=== PATIENT | female | born 1995 | race Caucasian/White ===

== ENCOUNTER 2018-03-03 21:22 | Observation (INO) | payer MEDICAID, SELFPAY ==
[2018-03-03 21:23] VITALS: BP 138/80; PULSE 91; RESP 28; TEMP 37.1; O2SAT 96; BMI 38.0
[2018-03-03 21:36] LABS: Bedside Glucose 137 mg/dL (70-110)
--- NOTE | 2018-03-03 21:36 | EKG12_ITS ---
Test Reason : Blood Pressure : / mmHG Vent. Rate : 086 BPM Atrial Rate : 086 BPM P-R Int : 158 ms QRS Dur : 098 ms QT Int : 404 ms P-R-T Axes : 041 075 035 degrees QTc Int : 483 ms Normal sinus rhythm Prolonged QT Abnormal ECG Confirmed by NOEL HAMMER, THERESA ([id number]), editor school photograph NEIDA GREEN ([id number]) on 03/08/2018 2:53:41 PM Referred By: CORY Confirmed By:THERESA COHEN MD
--- NOTE | 2018-03-03 21:36 | RAD_ITS ---
STUDY: X-RAY CHEST REASON FOR EXAM: Female, 23 years old. Seizure TECHNIQUE: Frontal view of the chest COMPARISON: None. FINDINGS: There is a right-sided port with its tip in the superior vena cava. The lungs are clear. There are no pleural effusions. There is no pneumothorax. The heart is normal in size. The visualized osseous structures are within normal limits. RAD/Chest 1 View (Portable) IMPRESSION: No acute thoracic pathology. Electronically Signed: Yazan Hudson, at 22:07 EDT Tel , Service support ,
--- NOTE | 2018-03-03 21:36 | CT_ITS ---
STUDY: CT BRAIN WITHOUT CONTRAST REASON FOR EXAM: Female, 23 years old. Seizure RADIATION DOSAGE (If Supplied By Facility): CTDIvol = ( 44.99 ) mGy, DLP = ( 846.73 ) mGycm TECHNIQUE: Transaxial CT imaging of the brain was performed without administration of intravenous contrast material. Individualized dose optimization techniques were used for this CT. COMPARISON: None. FINDINGS: There is no acute bleed or infarct. There are normal white matter tracts. The ventricles are normal in configuration. There is no hydrocephalus. There is a 1.8 cm polyp versus mucous retention cyst in the right maxillary sinus. The visualized paranasal sinuses are otherwise clear. The mastoid air cells are well aerated. There is no skull fracture. CT/Brain/Head without Contrast IMPRESSION: No acute intracranial abnormality. Polyp versus mucous retention cyst in the right maxillary sinus. Electronically Signed: Yazan Hudson, at 23:39 EDT Tel , Service support ,
--- NOTE | 2018-03-03 21:43 | ED.DCSUM_ITS ---
- ER Visit Summary Date of Service: 03/03/18 Chief Complaint: [] Seizure disorder diabetes History of Present Illness: The patient is a 23 F [] patient was brought in by EMS history is very sketchy as the patient has choppy speech and is recently new to the [facility], the girlfriend with her does not know her very well she is only known her for 5 days, she apparently per girlfriend had to type seizures 5 minutes each she did not strike her head or injure her body she was not sick in any way other than she complained of chest pain all day today, she has a history of chest pain, diabetes, history of factor V deficiency and she is on Eliquis related to multiple PEs, she lives in the [facility] recently moved to [place] so there is no past history records From what we understand from paramedics and the girlfriend she simply began having shaking spells ?2 but appear to be seizure related she was not sick except as above all day today she is not on seizure medications, she had seizures since she was age 43 years old when she had head injury she does not know what medication she was on with her medications were discontinued in August 2017 because she did not need them she has had no fever no cough her blood sugar recently was about 4-500 Physical Examination: [] Signs are unremarkable she is awake alert looking around she has this choppy speech pattern is unclear why she has no trauma to her head she has no trauma to her mouth she is awake and alert answering questions appropriately she is a large woman her lungs are clear the heart tones unremarkable abdomen soft nontender she is moving all 4 extremities to support her right chest that is by her history of [employer], she reports she cannot receive IV contrast unless she is medicated with steroids other meds for 24 hours, she has been taking her Eliquis In all the above CT screening labs IV fluids Keppra Test Results: [] Emergency Department Course and Treatment: [] Patient's screening labs are generally unremarkable, her d-dimer clotted she would not allow the nurses to redraw, there was some issue redrawn from report, her chest x-ray was unremarkable but there was some notation radiology the tip of the port seem to be curled up in the SVC, Head CT is pending she remains stable here in the emergency department were trying to determine what the issue was getting the head CT read at this time given all of her complaints I have asked the hospital see her further management admission we related the CT had report to him when it becomes available further I explained to them that the chest pain Eliquis history of DVT PE and the need for 24 hours of premedication should they feel she requires CTA of her chest, again she is and has been taking her Eliquis, any further anticoagulation will be determined by the inpatient service Treatment Plan: [] Disposition: [] Admit stable Impression: [] Seizure disorder, chest pain, history of seizure disorder, history of chest pain, history of diabetes and multiple PEs This note was generated with [employer] dictation software. It may contain incorrect words, spelling, and punctuation that were not noted in review of the chart prior to signing ED Disposition - Plan for ED Patient: Chief Complaint: Seizure
[2018-03-03 22:01] LABS: Absolute Lymphocyte Count 2.52 X10^3/ul (0.83-4.51); Absolute Neutrophil Count 7.6 X10^3/uL (2.0-7.7); Basophil# 0.05 X10^3/uL; Basophil% 0.4 % (0-1); Eosinophil# 0.14 X10^3/uL; Eosinophils% 1.3 % (0-5); Hematocrit 34.7 % (37-47); Hemoglobin 10.5 g/dl (12.0-15.0); Lymphocyte # 2.52 X10^3/ul (4.0); Lymphocyte % 22.5 % (19-41); Mean Corp Hgb Conc 30.3 g/gl (32-36); Mean Corpuscular Hgb 23.5 pg (27.0-32.0); Mean Corpuscular Volume 77.6 fL (81-99); Monocyte# 0.82 X10^3/uL; Monocyte% 7.3 % (0-10); Neutrophil # 7.64 X10^3/uL (2.7-7.7); Neutrophil % 68.3 % (47-70); POSITIVE COUNT NO; POSITIVE DIFFERENTIAL NO; POSITIVE MORPHOLOGY NO; Platelet Count 197 K/mm3 (150-450); RBC Distribution Width CV 16.7 % (11.6-14.6); RBC Distribution Width SD 46.8 fl (35.1-43.9); Red Blood Count 4.47 M/mm3 (4.2-5.4); White Blood Count 11.2 K/mm3 (4.4-11.0)
[2018-03-03] MEDS: levETIRAcetam IV 1,000 MG/100 ML BAG 400 MG IV (22:05)
[2018-03-03] MEDS: Ondansetron 4 MG/2 ML Vial IV (22:05)
[2018-03-03] MEDS: morphine 8 MG/ML Syringe IV (22:05)
[2018-03-03 22:19] LABS: AST(SGOT) 25 U/L (15-37); Alanine Aminotransfer ALT/SGPT 36 U/L (13-56); Albumin, Serum 3.2 g/dL (3.2-5.0); Alkaline Phosphatase 82 U/L (45-117); Anion Gap 10 (5-15); BUN 6 mg/dL (7-18); BUN/Creat Ratio 7.1 RATIO (10-20); Bilirubin, Direct 0.08 mg/dL (0.00-0.30); Calcium,Total 8.5 mg/dL (8.5-10.1); Chloride 111 mmol/L (98-107); Creatinine, Serum 0.84 mg/dL (0.55-1.02); EST Glomerular Filtration Rate 88 mL/min (>60); Est Glom Filt Rate - Afr Amer 107 mL/min (>60); Estimated Creatinine Clearance 104.18 ml/min; Globulin 3.6 g/dL (2.2-4.2); Glucose 118 mg/dL (74-106); Protein, Total 6.8 g/dL (6.4-8.2); Sodium Level 142 mmol/L (136-145)
[2018-03-03 22:43] LABS: Mucous, Urine 0 SEEN /hpf (<or=2+)
--- NOTE | 2018-03-03 23:21 | PCM.HP.STD ---
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 She came in with a friend who stated that patient had a first episode of seizure where she was unresponsive for about 5 minutes and 30 seconds and thereafter she had a tonic-clonic manifestation involving the bilateral legs , one arm and was shaking her head. Additionally she clenched her teeth. Patient denies any aura before this seizure. Although she states in the past she has had auras before her seizures. Her friend reports that patient had lost of control of her bladder with the seizure. Reportedly the patient's had head trauma in her childhood and ever since she has had seizures. Reportedly in August of this year her seizure medications was stopped. The patient was at [facility] on 02/26/2018 for shortness of breath and chest pain. And upon review of her chart from [facility], it was noted that the patient has a Port-A-Cath. Also, it was noted that patient frequently visits hospitals; was leaving at a correction; and is allergic to all pain medications except morphine and Dilaudid. Also from review of charts, it was noted that patient had tried suicide by medicine overdose for about 50 times. From review of charts she reported marijuana and methamphetamines use while at [facility]. Patient used to live in [place] and came to [place] not too long ago.. She came to the emergency department with a friend who she has met not too long ago. Her friend was requesting that the patient should be given something for her chest pain. Her friend had buprenorphine patch on which she displayed at a time of my assessment. Past Medical History Medical History: Medical History (Last Updated 03/04/18 @ 00:50 by Samir Luevano MD) DVT (deep venous thrombosis) I82.409 Diabetes mellitus type 1 E10.9 Epilepsy G40.909 Factor V Leiden mutation D68.51 Hypothyroidism E03.9 Pulmonary embolism I26.99 Schizoaffective disorder F25.9 Allergies Unable to Assess Allergy (Verified 03/03/18 21:27) Home Medications: Ambulatory Orders Medication Instructions Recorded Apixaban [Eliquis] 5 mg PO BID 03/03/18 Atorvastatin Calcium 40 mg PO DAILY 03/03/18 Carvedilol 25 mg PO BID 03/03/18 Furosemide 40 mg PO TID 03/03/18 Insulin Aspart [Novolog] 5 unit SQ TID 03/03/18 Insulin Glargine,Hum.rec.anlog 45 unit SQ BID 03/03/18 [Lantus] Levothyroxine [Synthroid] 150 mcg PO DAILY 03/03/18 Psychiatric History: Bipolar Smoking Status: Current every day smoker Alcohol: Occasional Drugs: Marijuana - *Family History Paternal History Items: Clotting Disorder, Diabetes, Seizures Review of Systems Constitutional: Denies: Chills, Fever, Weight Change HEENT: Denies: Head Aches, Sinus Congestion, Sinus Drainage Cardiovascular: Reports: Chest Pain Respiratory: Denies: Cough, Shortness of breath at rest, Sputum production Gastrointestinal: Denies: Abdominal Pain, Nausea, Vomiting Genitourinary: Denies: Dysuria Musculoskeletal: Denies: Joint Pain, Joint Tenderness Skin: Denies: Rash, Wounds Neurological: Denies: Numbness, Tingling, Focal weakness VTE Information - Inpt Only VTE Present on Admission: No VTE Mechan Device Prophylaxis: None VTE Pharm Prophylaxis ordered?: No Reason prophylaxis not ordered:: Medical Contraindication - Physical Exam General: Lethargic HEENT: Atraumatic, PERRLA, EOMI, Normocephalic Neck: Supple, No JVD, Negative Carotid Bruits Lungs: Clear to auscultation, Normal air movement Cardiovascular: Regular rate, No murmurs Abdomen: Bowel Sounds Present Extremities: No clubbing Skin: No rashes, No breakdown Musculoskeletal: No Tenderness to Palpation of Joints or Extremities Neurological: - - Patient lethargic, talking slowly and unable to follow commands. Psych/Mental Status: - - Lethargic Vital Signs Temp Pulse Resp BP Pulse Ox 98.8 F 91 28 H 138/80 H 96 03/03/18 21:23 03/03/18 21:23 03/03/18 21:23 03/03/18 21:23 03/03/18 21:23 Oxygen Delivery Method Room Air Weight: 113.398 kg Body Mass Index (BMI) 38.0 Laboratory Tests Past 24 Hrs 03/03/18 03/03/18 03/03/18 21:52 21:52 22:35 WBC 11.2 H RBC 4.47 Hgb 10.5 L Hct 34.7 L MCV 77.6 L MCH 23.5 L MCHC 30.3 L RDW 16.7 H RDW Differential 46.8 H Plt Count 197 MPV 9.0 Immature Gran % (Auto) 0.200 Neut % (Auto) 68.3 Lymph % (Auto) 22.5 [place] % (Auto) 7.3 Eos % (Auto) 1.3 Baso % (Auto) 0.4 Absolute Neuts (auto) 7.6 Absolute Lymphs (auto) 2.52 Total Counted Not Reportable Sodium 142 Potassium 3.0 L Chloride 111 H Carbon Dioxide 21.0 Anion Gap 10 BUN 6 L Creatinine 0.84 Estim Creat Clear Calc 104.18 Est GFR (MDRD) Af Amer 107 Est GFR (MDRD) Non-Af 88 BUN/Creatinine Ratio 7.1 L Glucose 118 H Calcium 8.5 Total Bilirubin 0.30 Direct Bilirubin 0.08 AST 25 ALT 36 Alkaline Phosphatase 82 Troponin I < 0.015 Total Protein 6.8 Albumin 3.2 Globulin 3.6 Urine Color Pending Urine Clarity Pending Urine pH Pending Ur Specific [place] Pending Urine Protein Pending Urine Glucose (UA) Pending Urine Ketones Pending Urine Occult Blood Pending Urine Nitrite Pending Urine Bilirubin Pending Urine Urobilinogen Pending Ur Leukocyte Esterase Pending Urine RBC Pending Urine WBC Pending Ur Squamous Epith Cells Pending Urine Bacteria Pending Urine Mucus Pending POC Glucose 03/03/18 21:28 POC Glucose 137 H Assessment/Plan Patient is a 23 year old F with a significant history of epilepsy; factor V Leiden deficiency, 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 Seizures Status post Keppra 1000 mg bolus at the ED We will continue Keppra one thousand milligrams twice daily. Ativan as needed Seizure precautions Urine drug screen. CPK ordered to confirm seizure. EEG ordered. Neurology consult Chest pain Her chest pain has been going for a long time. At the ED CT of the chest was considered. However, because of allergy to contrast patient requested that before her CT scan of the chest can be done she need a 24-hour treatment with steroids and Benadryl Unlikely PE since patient does not have tachycardia and her oxygen saturation is appropriate. Moreover she is on Eliquis and has IVC filter Aspirin ordered Serial cardiac enzymes at this time. The patient is not a candidate for a stress test at this time since she is very lethargic. Aspirin continued. Lipitor continued. Because of abnormal EKG cardiology (? Brugada )has been consulted. Diabetes mellitus type I On home prandial insulin 5 units 3 times daily and with sliding scale. We will continue prandial insulin and add a correction dose regimen. Reportedly she is waiting for pre-approval for Lantus. She reports that her Lantus dose is supposed to be 45 units. Her blood glucose on admission was only mildly elevated We will start patient on Lantus 10 units once daily and see how she does with that. Multiple PEs and DVT secondary to a factor leading deficiency Eliquis continued DVT prophylaxis Patient is already on Eliquis. This note was prepared with speech recognition software and may be prone to errors in social human services assistants. Code Visit Inpatient E&M: 70912 Init Hosp L2
[2018-03-03 23:24] VITALS: BP 97/50; PULSE 83; RESP 16; O2SAT 89
[2018-03-03 23:24] LABS: Color, Urine Yellow (Yellow); Glucose, Dipstick Normal (Normal); Ketone-Dipstick 5 mg/dl (Negative); Leukocyte Esterase-Dipstick 25 /ul (Negative); Nitrite-Dipstick Negative (Negative); Occult Blood-Urine 10 /ul (Negative); Protein-Dipstick 30 mg/dl (Negative); Specific Gravity, Urine 1.025 (1.002-1.030); Urine Bilirubin Dipstick Negative (Negative); Urine Clarity Clear (Clear); Urine Urobilinogen 1 mg/dl (Normal)
--- NOTE | 2018-03-03 23:25 | ED.RN ---
rn not able to straight stick patient, lab unable. dr. white aware. if unable to get no need to get per dr. white
[2018-03-03 23:46] LABS: Bacteria RARE /hpf (None Seen); Calcium Oxalate Crystals Ur 1+ /hpf (<or=2+); Red Blood Cells-Urine 0-5 SEEN /hpf (0-5); Squamous Epithelial Cells - UA 0-5 SEEN /hpf (5-10); White Blood Cells 0-5 SEEN /hpf (0-5)
[2018-03-04] VITALS (13 sets, daily range): BP systolic 112–124; BP diastolic 50–80; PULSE 55–81; RESP 14–20; TEMP 36–36.7; O2SAT 89–98; BMI 55.2
[2018-03-04] MEDS: Ketorolac 30 MG/ML Syringe IV (02:05)
[2018-03-04] MEDS: 0.9% NaCl Peripheral Flush Adult/Peds IV ×2 (02:06→05:57)
[2018-03-04 02:20] LABS: CPK Total, Creatine Kinase 140 U/L (26-192)
[2018-03-04 03:01] LABS: Amphetamine Urine VISTA NEGATIVE (<1000 ng/mL); Barbiturate Urine VISTA NEGATIVE (< 200 ng/mL); Benzodiazepine Urine VISTA NEGATIVE (< 200 ng/mL); Cocaine Urine VISTA NEGATIVE (< 300 ng/mL); Ecstacy Urine VISTA NEGATIVE (< 500 ng/mL); Methadone Urine VISTA NEGATIVE (< 300 ng/mL); PCP Urine VISTA NEGATIVE (< 25 ng/mL); THC Urine VISTA POSITIVE (< 50 ng/mL); Vista UDS pH Range 6
[2018-03-04] MEDS: levETIRAcetam IV 1,000 MG/100 ML BAG 400 MG IV (05:52)
[2018-03-04] MEDS: Levothyroxine 150 MCG Tablet PO (05:55)
[2018-03-04] MEDS: Furosemide 40 MG Tablet PO (05:55)
[2018-03-04] MEDS: Haloperidol Lactate 5 MG/ML Vial IV (05:57)
[2018-03-04 06:58] LABS: Anion Gap 8 (5-15); BUN 6 mg/dL (7-18); BUN/Creat Ratio 8.5 RATIO (10-20); Calcium,Total 8.2 mg/dL (8.5-10.1); Chloride 114 mmol/L (98-107); Creatinine, Serum 0.71 mg/dL (0.55-1.02); EST Glomerular Filtration Rate 108 mL/min (>60); Est Glom Filt Rate - Afr Amer 130 mL/min (>60); Estimated Creatinine Clearance 123.25 ml/min; Glucose 98 mg/dL (74-106); Potassium 3.7 mmol/L (3.5-5.1); Sodium Level 146 mmol/L (136-145)
[2018-03-04 09:01] LABS: Bedside Glucose 105 mg/dL (70-110)
--- NOTE | 2018-03-04 09:28 | PCM.PROGNOTE ---
Subjective: Chief complaint: Follow-up after admission for seizure. Patient seen and examined. No acute events overnight. At this time, patient is sleepy but she is arousable and was able to communicate and answer questions appropriately. She knows her full name, date of , date and time but she mentioned that she does not know what she is at. She complains of chest pain but this has been chronic. She is not aware of what happened yesterday and she is not aware that she had seizure ?2. According to the patient, she had a history of seizure disorder and she has been on seizure medication for long time that was stopped on August, by his PCP. She has a Port-A-Cath and according to her, this was placed in October, because she has difficult IV access. Reportedly, patient was admitted to outside facility on February 26, 2018 for chest pain or shortness of breath. Not clear if she had any stress test done. At this time, her vital signs are completely stable. Routine blood work was remarkable for anemia which looked to be chronic, potassium of 3 which was replaced and corrected. Her LFT was normal. Troponin was negative ?3. Urinalysis revealed no evidence of acute cystitis. Urine drug screen was positive for opioids and cannabinoids. EKG revealed normal sinus rhythm, normal CT interval, prolonged QTC, no acute ischemic changes. CT scan brain showed no acute findings. Chest x-ray showed no acute infiltrate, consolidation or effusion. - Physical Exam General: Alert, Cooperative, - - AP, easily arousable, appropriate answering questions. HEENT: Atraumatic, PERRLA, EOMI, Normocephalic Oral: Moist Mucosa, No Gingival or Mucosal Lesions/ Ulcerations Neck: Supple, No JVD, Negative Carotid Bruits, Trachea Midline, Thyroid Normal Size and Texture Lungs: Clear to auscultation, No rhonchi, No wheeze, No rales, Diminished Cardiovascular: Regular rate, Regular Rhythm, Normal S1, Normal S2, PMI Normal Abdomen: Bowel Sounds Present, Soft, Non Tender, Non-Distended, No Hepato-splenomegaly, Obese Extremities: No clubbing, No cyanosis, No edema Skin: No rashes, No breakdown Lymphatic: No Cervical, Supraclavicular, or Inguinal Adenopathy Neurological: Cranial nerves II-XII grossly intact, Motor Exam 5/5 strength throughout Psych/Mental Status: Normal Affect Vital Signs Temp Pulse Resp BP Pulse Ox 98.0 F 66 14 118/60 96 03/04/18 07:00 03/04/18 07:00 03/04/18 07:00 03/04/18 07:00 03/04/18 07:00 Oxygen Delivery Method Room Air Weight: 363 lb 12.203 oz Body Mass Index (BMI) 55.2 Intake and Output for Last 24 Hours 03/02/18 03/03/18 03/04/18 23:59 23:59 23:59 Intake Total 231 / 231 Balance 231 / 231 Laboratory Tests Past 24 Hrs 03/04/18 03/04/18 03/04/18 01:29 01:29 06:16 Sodium Potassium Chloride Carbon Dioxide Anion Gap BUN Creatinine Estim Creat Clear Calc Est GFR (MDRD) Af Amer Est GFR (MDRD) Non-Af BUN/Creatinine Ratio Glucose Calcium Total Creatine Kinase 140 Troponin I < 0.015 < 0.015 03/04/18 06:16 Sodium 146 H Potassium 3.7 Chloride 114 H Carbon Dioxide 24.0 Anion Gap 8 BUN 6 L Creatinine 0.71 Estim Creat Clear Calc 123.25 Est GFR (MDRD) Af Amer 130 Est GFR (MDRD) Non-Af 108 BUN/Creatinine Ratio 8.5 L Glucose 98 Calcium 8.2 L Total Creatine Kinase Troponin I POC Glucose 03/04/18 08:50 POC Glucose 105 Clinical Impression(s) from Imaging Studies Brain CT 03/03/18 21:36 IMPRESSION: No acute intracranial abnormality. Polyp versus mucous retention cyst in the right maxillary sinus. Electronically Signed: Yazan Hudson, at 23:39 EDT Tel , Service support , Chest X-Ray 03/03/18 21:36 IMPRESSION: No acute thoracic pathology. Electronically Signed: Yazan Hudson, at 22:07 EDT Tel , Service support , ADDENDUM: 03/03/18 2224 Medical Necessity - Tobacco Use Smoking Status: Current every day smoker Tobacco Use: Cigarettes Assessment/Plan This is a 23 years old female patient presented to the emergency room because of witnessed generalized tonic-clonic seizure in context of history of seizure disorder, was on anticonvulsants that was discontinued on August, according to the patient. #1 seizure: In context of history of seizure, was on antiseizure medications that was discontinued on August, according to patient. She is on IV Keppra. At this time, she is lethargic and sleepy but easily arousable and appropriate. Her vital signs are stable. Routine blood work is remarkable for hypokalemia and chronic anemia, otherwise stable. Potassium was replaced and corrected. Neurology consulted, EEG was ordered. #2 chronic chest pain: EKG revealed normal sinus rhythm without evidence of acute ischemic changes, revealed prolonged QTC and this is chronic. There is a positive ?3. Chest x-ray showed no acute findings. Reportedly, patient was admitted for chest pain or shortness of breath recently at outside facility. Reportedly as well, patient has been having chronic chest pain and there is a concern that she has factitious disorder seeking narcotics. At this time, the pain is unlikely to be cardiac in etiology. No indication for further cardiac workup. We will try to see if she had stress test done at the outside facility during the last admission was 1 week ago. #3 type 2 diabetes mellitus: Blood sugar stable, continue 89, Accu-Cheks, continue pre-meal Humalog and a.m. Lantus. #4 hypertension: Blood pressure stable, continue Coreg, Lasix. #5 unspecified chronic CHF: Clinically stable, compensated at this time. Continue aspirin, statins, Coreg and Lasix. #6 hypothyroidism: Continue levothyroxine. #7 Paroxysmal atrial fibrillation: Rate is controlled, she is in sinus rhythm. Continue Coreg for rate control and Eliquis for anti-cognition. #8 history of factor V Leiden/DVT/history of PE: Status post IVC, continue Eliquis. #9 ADHD/schizoaffective disorders: She is not in any regimen at home. At this time, she is calm and appropriate. #10 DVT prophylaxis: Continue Eliquis. This note was generated with [employer] dictation software. It may contain incorrect words, spelling, and punctuation that were not noted in checking the note before signing. Code Visit Inpatient E&M: 73935 Subs Hosp L2
--- NOTE | 2018-03-04 09:32 | PN_ITS ---
Subjective: Chief complaint: Follow-up after admission for seizure. Patient seen and examined. No acute events overnight. At this time, patient is sleepy but she is arousable and was able to communicate and answer questions appropriately. She knows her full name, date of , date and time but she mentioned that she does not know what she is at. She complains of chest pain but this has been chronic. She is not aware of what happened yesterday and she is not aware that she had seizure ?2. According to the patient, she had a history of seizure disorder and she has been on seizure medication for long time that was stopped on August, by his PCP. She has a Port-A-Cath and according to her, this was placed in October, because she has difficult IV access. Reportedly, patient was admitted to outside facility on February 26, 2018 for chest pain or shortness of breath. Not clear if she had any stress test done. At this time, her vital signs are completely stable. Routine blood work was remarkable for anemia which looked to be chronic, potassium of 3 which was replaced and corrected. Her LFT was normal. Troponin was negative ?3. Urinalysis revealed no evidence of acute cystitis. Urine drug screen was positive for opioids and cannabinoids. EKG revealed normal sinus rhythm, normal TX interval, prolonged QTC, no acute ischemic changes. CT scan brain showed no acute findings. Chest x-ray showed no acute infiltrate, consolidation or effusion. - Physical Exam General: Alert, Cooperative, - - AP, easily arousable, appropriate answering questions. HEENT: Atraumatic, PERRLA, EOMI, Normocephalic Oral: Moist Mucosa, No Gingival or Mucosal Lesions/ Ulcerations Neck: Supple, No JVD, Negative Carotid Bruits, Trachea Midline, Thyroid Normal Size and Texture Lungs: Clear to auscultation, No rhonchi, No wheeze, No rales, Diminished Cardiovascular: Regular rate, Regular Rhythm, Normal S1, Normal S2, PMI Normal Abdomen: Bowel Sounds Present, Soft, Non Tender, Non-Distended, No Hepato- splenomegaly, Obese Extremities: No clubbing, No cyanosis, No edema Skin: No rashes, No breakdown Lymphatic: No Cervical, Supraclavicular, or Inguinal Adenopathy Neurological: Cranial nerves II-XII grossly intact, Motor Exam 5/5 strength throughout Psych/Mental Status: Normal Affect Vital Signs Temp Pulse Resp BP Pulse Ox 98.0 F 66 14 118/60 96 03/04/18 07:00 03/04/18 07:00 03/04/18 07:00 03/04/18 07:00 03/04/18 07:00 Oxygen Delivery Method Room Air Weight: 363 lb 12.203 oz Body Mass Index (BMI) 55.2 Intake and Output for Last 24 Hours 03/02/18 03/03/18 03/04/18 23:59 23:59 23:59 Intake Total 231 / 231 Balance 231 / 231 Laboratory Tests Past 24 Hrs 03/04/18 03/04/18 03/04/18 01:29 01:29 06:16 Sodium Potassium Chloride Carbon Dioxide Anion Gap BUN Creatinine Estim Creat Clear Calc Est GFR (MDRD) Af Amer Est GFR (MDRD) Non-Af BUN/Creatinine Ratio Glucose Calcium Total Creatine Kinase 140 Troponin I < 0.015 < 0.015 03/04/18 06:16 Sodium 146 H Potassium 3.7 Chloride 114 H Carbon Dioxide 24.0 Anion Gap 8 BUN 6 L Creatinine 0.71 Estim Creat Clear Calc 123.25 Est GFR (MDRD) Af Amer 130 Est GFR (MDRD) Non-Af 108 BUN/Creatinine Ratio 8.5 L Glucose 98 Calcium 8.2 L Total Creatine Kinase Troponin I POC Glucose 03/04/18 08:50 POC Glucose 105 Clinical Impression(s) from Imaging Studies Brain CT 03/03/18 21:36 IMPRESSION: No acute intracranial abnormality. Polyp versus mucous retention cyst in the right maxillary sinus. Electronically Signed: Yazan Hudson, at 23:39 EDT Tel , Service support , Chest X-Ray 03/03/18 21:36 IMPRESSION: No acute thoracic pathology. Electronically Signed: Yazan Hudson, at 22:07 EDT Tel , Service support , ADDENDUM: 03/03/18 2224 Medical Necessity - Tobacco Use Smoking Status: Current every day smoker Tobacco Use: Cigarettes Assessment/Plan This is a 23 years old female patient presented to the emergency room because of witnessed generalized tonic-clonic seizure in context of history of seizure disorder, was on anticonvulsants that was discontinued on August, according to the patient. #1 seizure: In context of history of seizure, was on antiseizure medications that was discontinued on August, according to patient. She is on IV Keppra. At this time, she is lethargic and sleepy but easily arousable and appropriate. Her vital signs are stable. Routine blood work is remarkable for hypokalemia and chronic anemia, otherwise stable. Potassium was replaced and corrected. Neurology consulted, EEG was ordered. #2 chronic chest pain: EKG revealed normal sinus rhythm without evidence of acute ischemic changes, revealed prolonged QTC and this is chronic. There is a positive ?3. Chest x-ray showed no acute findings. Reportedly, patient was admitted for chest pain or shortness of breath recently at outside facility. Reportedly as well, patient has been having chronic chest pain and there is a concern that she has factitious disorder seeking narcotics. At this time, the pain is unlikely to be cardiac in etiology. No indication for further cardiac workup. We will try to see if she had stress test done at the outside facility during the last admission was 1 week ago. #3 type 2 diabetes mellitus: Blood sugar stable, continue 89, Accu-Cheks, continue pre-meal Humalog and a.m. Lantus. #4 hypertension: Blood pressure stable, continue Coreg, Lasix. #5 unspecified chronic CHF: Clinically stable, compensated at this time. Continue aspirin, statins, Coreg and Lasix. #6 hypothyroidism: Continue levothyroxine. #7 Paroxysmal atrial fibrillation: Rate is controlled, she is in sinus rhythm. Continue Coreg for rate control and Eliquis for anti-cognition. #8 history of factor V Leiden/DVT/history of PE: Status post IVC, continue Eliquis. #9 ADHD/schizoaffective disorders: She is not in any regimen at home. At this time, she is calm and appropriate. #10 DVT prophylaxis: Continue Eliquis. This note was generated with [employer] dictation software. It may contain incorrect words, spelling, and punctuation that were not noted in checking the note before signing. Code Visit Inpatient E&M: 10111 Subs Hosp L2
[2018-03-04] MEDS: APIXABAN 5 MG TABLET PO (10:15)
[2018-03-04] MEDS: Carvedilol 25 MG Tablet PO (10:15)
--- NOTE | 2018-03-04 10:54 | PCM.CONS.GEN ---
Reason for Consult Date of Consultation: 03/04/18 Reason for Consultation: sz History of Present Illness: The patient is a 23 year oldfemale apparently diagnosed with pseudosz in [place], in aug stopped meds per her neurologist, had a seizure so meds restarted, moved to [place] two months ago and stopped meds and has had a recurrent event with urinary incontinence but no tongue biting or injury. reports she is tired now, reports sz since age 3 due to head injury. has significant psychiatric confounders. Past Medical History Past Medical History (Chronic Problems): Chronic Problems (Last Updated 03/04/18 @ 00:50 by Samir Luevano MD) Unspecified chronic CHF (Chronic) Hypothyroidism (Chronic) Type 2 diabetes mellitus (Chronic) Seizure disorder (Chronic) Schizoaffective disorder (Chronic) ADHD (attention deficit hyperactivity disorder) (Chronic) Hypertension (Chronic) S/P IVC filter (Chronic) History of pulmonary embolism (Chronic) History of DVT of lower extremity (Chronic) Factor V Leiden (Chronic) Atrial fibrillation (Chronic) Medical History: Medical History (Last Reviewed 03/04/18 @ 10:56 by Ross Shah MD) DVT (deep venous thrombosis) I82.409 Diabetes mellitus type 1 E10.9 Epilepsy G40.909 Factor V Leiden mutation D68.51 Hypothyroidism E03.9 Pulmonary embolism I26.99 Schizoaffective disorder F25.9 Allergies Unable to Assess Allergy (Verified 03/03/18 21:27) Home Medications: Ambulatory Orders Medication Instructions Recorded Apixaban [Eliquis] 5 mg PO BID 03/03/18 Atorvastatin Calcium 40 mg PO DAILY 03/03/18 Carvedilol 25 mg PO BID 03/03/18 Furosemide 40 mg PO TID 03/03/18 Insulin Aspart [Novolog] 5 unit SQ TID 03/03/18 Insulin Glargine,Hum.rec.anlog 45 unit SQ BID 03/03/18 [Lantus] Levothyroxine [Synthroid] 150 mcg PO DAILY 03/03/18 Psychiatric History: Bipolar Smoking Status: Current every day smoker Tobacco Use: Cigarettes Alcohol: Occasional Drugs: Marijuana - *Family History Paternal History Items: Clotting Disorder, Diabetes, Seizures Review of Systems Constitutional: Denies: Chills, Fever, Weight Change HEENT: Denies: Head Aches, Sinus Congestion, Sinus Drainage Cardiovascular: Denies: Chest Pain, Palpitations Respiratory: Denies: Cough, Shortness of breath at rest, Sputum production Gastrointestinal: Denies: Abdominal Pain, Nausea, Vomiting Genitourinary: Denies: Dysuria Musculoskeletal: Denies: Joint Pain, Joint Tenderness Skin: Denies: Rash, Wounds Neurological: Denies: Numbness, Tingling, Focal weakness Psychiatric: Denies: Anxiety, Depression, Homicidal Ideations, Suicidal Ideations Hematologic/ Lymphatic: Denies: Easy Bruising, Easy Bleeding - Physical Exam General: Alert - nonphysiologic stuttering of speech, language intact, Oriented x3, Cooperative HEENT: Atraumatic, PERRLA, EOMI, Normocephalic Neck: Supple, No JVD, Negative Carotid Bruits Lungs: Clear to auscultation, Normal air movement Cardiovascular: Regular rate, No murmurs Abdomen: Bowel Sounds Present, Soft, Non Tender Extremities: No edema, Capillary Refill Less than 3 Seconds Skin: No rashes, No breakdown Musculoskeletal: No Tenderness to Palpation of Joints or Extremities Neurological: Cranial nerves II-XII grossly intact Psych/Mental Status: Normal Affect, Appropriate Vital Signs Temp Pulse Resp BP Pulse Ox 36.7 C 60 14 118/60 96 03/04/18 07:00 03/04/18 07:03 03/04/18 07:00 03/04/18 07:00 03/04/18 07:00 Oxygen Delivery Method Room Air Weight: 165 kg Body Mass Index (BMI) 55.2 Intake and Output for Last 24 Hours 03/02/18 03/03/18 03/04/18 23:59 23:59 23:59 Intake Total 231 / 231 Balance 231 / 231 Laboratory Tests Past 24 Hrs 03/04/18 03/04/18 03/04/18 01:29 01:29 06:16 Sodium Potassium Chloride Carbon Dioxide Anion Gap BUN Creatinine Estim Creat Clear Calc Est GFR (MDRD) Af Amer Est GFR (MDRD) Non-Af BUN/Creatinine Ratio Glucose Calcium Total Creatine Kinase 140 Troponin I < 0.015 < 0.015 03/04/18 06:16 Sodium 146 H Potassium 3.7 Chloride 114 H Carbon Dioxide 24.0 Anion Gap 8 BUN 6 L Creatinine 0.71 Estim Creat Clear Calc 123.25 Est GFR (MDRD) Af Amer 130 Est GFR (MDRD) Non-Af 108 BUN/Creatinine Ratio 8.5 L Glucose 98 Calcium 8.2 L Total Creatine Kinase Troponin I POC Glucose 03/04/18 08:50 POC Glucose 105 Assessment/Plan likely pseudosz, workup in [place], unable to determine. no need for further neurologic testing restart cortez marcelo, tpm dc when baseline
--- NOTE | 2018-03-04 11:11 | CASEMGMT ---
Addendum entered by Lise Vergara 03/04/18 12:44: SW attempted to speak w/pt again this afternoon, pt is still asleep however. SW will attempt to see pt on Wednesday as time allows. JS Zamora, [employer]INE [employer]SEM[employer]ER Original Note: SW attempted to speak w/pt in the room in regard to counseling resources. However, pt appears asleep and difficult to arouse. Pt did open her eyes, but immediately closed them again. SW will attempt to speak w/her again once pt is more awake and alert. JS Zamora, [employer]IN MACHINE ASSEMBLER
--- NOTE | 2018-03-04 11:14 | CASEMGMT ---
See RN CM Assessment Link. DC PLAN: Home -Pt lives with friend who pt says assists with transportation. -SW consult to assist with establishing counseling in [place]. Jeanine KHOURYN RN AC
[2018-03-04 11:56] LABS: Bedside Glucose 91 mg/dL (70-110)
[2018-03-04] MEDS: Gabapentin 300 MG Capsule 900 MG PO (12:18)
[2018-03-04] MEDS: Topiramate 100 MG Tablet PO (12:18)
--- NOTE | 2018-03-04 15:06 | DCINST_ITS ---
- Discharge Diagnoses Current Active Problems: Current Active and Chronic Problems (Last Reviewed 03/04/18 @ 10:56 by Ross Shah MD) Unspecified chronic CHF (Chronic) Hypothyroidism (Chronic) Type 2 diabetes mellitus (Chronic) Seizure disorder (Chronic) Schizoaffective disorder (Chronic) ADHD (attention deficit hyperactivity disorder) (Chronic) Hypertension (Chronic) S/P IVC filter (Chronic) History of pulmonary embolism (Chronic) History of DVT of lower extremity (Chronic) Factor V Leiden (Chronic) Atrial fibrillation (Chronic) You will use the following diet at home:: Calorie/Carbohydrate Controlled ( specify 1200, 1400, etc) - 1800 rachelle, Cardiac Your food should be the consistency of: Regular Discharge Activity: Return to Normal Activity Weight Bearing Status: Weight bearing as tolerated Call your doctor if you observe: Fever of 101 or Higher, Shortness of breath, Dizziness, Fainting spells, Chest pain, Increased palpitations (irregular heartbeat), Uncontrolled pain Allergies/Adverse Reactions: Allergies Unable to Assess Allergy (Verified 03/03/18 21:27) Medications to take at Discharge Apixaban [Eliquis] 5 mg PO BID 03/03/18 Atorvastatin Calcium 40 mg PO DAILY 03/03/18 Carvedilol 25 mg PO BID 03/03/18 Furosemide 40 mg PO TID 03/03/18 Insulin Aspart [Novolog Vial] 5 unit SQ TID 03/03/18 Insulin Glargine,Hum.rec.anlog [Lantus] 45 unit SQ BID 03/03/18 Levothyroxine [Synthroid] 150 mcg PO DAILY 03/03/18 Gabapentin [Neurontin] 900 mg PO TIDCM #90 cap 03/04/18 Topiramate [Topamax] 100 mg PO BID #90 tab 03/04/18 levETIRAcetam tablet [Keppra tablet] 500 mg PO BID #90 tab 03/04/18 The following prescriptions were given: levETIRAcetam tablet [Keppra tablet] 500 mg PO BID #90 tab Topiramate [Topamax] 100 mg PO BID #90 tab Gabapentin [Neurontin] 900 mg PO TIDCM #90 cap Primary Care Physician: Adria Hopper NP-C [Primary Care Provider] - Please follow up with your Primary Care Physician in: 1 week. Test Results: Test results from this visit will be discussed in further detail at your follow- up appointment, if applicable. Please Follow Up With: Ross Shah MD When: 2-3 weeks.
--- NOTE | 2018-03-04 15:47 | DS.PCM_ITS ---
Discharge Date and Diagnosis Date of Admission: 03/03/18 Date of Discharge: 03/04/18 - Primary Discharge Diagnosis #1 seizure in context of history of seizure disorder, discontinued taking her seizure medication in general, 2018. #2 encephalopathy. #3 chronic chest pain. #4 concern for drug-seeking behavior. - Secondary Discharge Diagnosis Chronic Problems (Last Reviewed 03/04/18 @ 10:56 by Ross Shah MD) Unspecified chronic CHF (Chronic) Hypothyroidism (Chronic) Type 2 diabetes mellitus (Chronic) Seizure disorder (Chronic) Schizoaffective disorder (Chronic) ADHD (attention deficit hyperactivity disorder) (Chronic) Hypertension (Chronic) S/P IVC filter (Chronic) History of pulmonary embolism (Chronic) History of DVT of lower extremity (Chronic) Factor V Leiden (Chronic) Atrial fibrillation (Chronic) Hospital Course and Treatment Imaging Results: Clinical Impression(s) from Imaging Studies Brain CT 03/03/18 21:36 IMPRESSION: No acute intracranial abnormality. Polyp versus mucous retention cyst in the right maxillary sinus. Electronically Signed: Yazan Hudson, at 23:39 EDT Tel , Service support , Chest X-Ray 03/03/18 21:36 IMPRESSION: No acute thoracic pathology. Electronically Signed: Yazan Hudson, at 22:07 EDT Tel , Service support , ADDENDUM: 03/03/18 2224 Operations: None Procedures: EKG Summary of Care Provided: The patient is a 23 year old F admitted because of witnessed generalized tonic clinic seizure ?2 in context of history of seizure and according to the patient , her dog. Her antiseizure medications back in August,. CT scan brain showed no acute findings. Her routine blood work was unremarkable. Her urinalysis revealed no evidence for acute cystitis. Chest x-ray showed no acute infiltrate. Her urine drug screen was positive for opioids and cannabinoids. Patient was admitted to ICU, was given loading dose of Keppra. Neurology consulted and recommended to start patient back on Keppra, Topamax and gabapentin. Neurology stated that there is no need to do EEG. Reportedly, patient was admitted to our facility 1 week ago for chest pain or shortness of breath. This admission, patient again complained of chest pain or shortness of breath. Her EKG revealed normal sinus rhythm, prolonged QTC and no acute ischemic changes. Troponin was negative ?3. Reportedly, there is a concern that patient having drug-seeking behavior. She does have Port-A-Cath and according to the patient, this was placed back in October, because she has difficult IV access. Cardiology consulted and recommended no further cardiac workup. Acute coronary syndrome ruled out. Patient was started back on Keppra , Topamax and gabapentin by neurology. Initially, patient was lethargic and sleepy and later on the day of discharge, patient was fully awake, alert and oriented and she was eating and drinking. Her vital signs were stable. Patient discharged home in a stable medical condition, discharged on Keppra, Topamax and gabapentin, continued on her chronic home medications without any changes, recommended follow-up with PCP in 1 week and follow-up with neurology in 2-3 weeks. Discharge Activity: Return to Normal Activity Weight Bearing Status: Weight bearing as tolerated Call your doctor if you observe: Fever of 101 or Higher, Shortness of breath, Dizziness, Fainting spells, Chest pain, Increased palpitations (irregular heartbeat), Uncontrolled pain Home Medications: Medications to take at Discharge Apixaban [Eliquis] 5 mg PO BID 03/03/18 Atorvastatin Calcium 40 mg PO DAILY 03/03/18 Carvedilol 25 mg PO BID 03/03/18 Furosemide 40 mg PO TID 03/03/18 Insulin Aspart [Novolog Vial] 5 unit SQ TID 03/03/18 Insulin Glargine,Hum.rec.anlog [Lantus] 45 unit SQ BID 03/03/18 Levothyroxine [Synthroid] 150 mcg PO DAILY 03/03/18 Gabapentin [Neurontin] 900 mg PO TIDCM #90 cap 03/04/18 Topiramate [Topamax] 100 mg PO BID #90 tab 03/04/18 levETIRAcetam tablet [Keppra tablet] 500 mg PO BID #90 tab 03/04/18 Following Prescrptions Were Given to Patient: levETIRAcetam tablet [Keppra tablet] 500 mg PO BID #90 tab Topiramate [Topamax] 100 mg PO BID #90 tab Gabapentin [Neurontin] 900 mg PO TIDCM #90 cap Primary Care Physician: Adria Hopper NP-C [Primary Care Provider] - Please follow up with your Primary Care Physician in: 1 week. Please Follow Up With: Ross Shah MD When: 2-3 weeks. Disposition: Home Minutes spent on discharge:: 25 Patient Condition:: Stable Medical Necessity - Tobacco Use Smoking Status: Current every day smoker Tobacco Use: Cigarettes Meaningful Use Info Meaningful Use Diagnoses (Choose all that apply): None applicable Code Visit Inpatient E&M: 40386 Disch Hosp
--- NOTE | 2018-03-04 16:48 | PCM.CONS.C ---
Problem List (1) Atrial fibrillation Status: Chronic Qualifiers: Atrial fibrillation type: paroxysmal Qualified Code(s): I48.0 - Paroxysmal atrial fibrillation (2) Prolonged QT interval Status: Acute (3) Diastolic CHF, chronic Status: Acute (4) Factor V Leiden Status: Chronic (5) History of DVT of lower extremity Status: Chronic (6) History of pulmonary embolism Status: Chronic (7) S/P IVC filter Status: Chronic (8) Hypertension Status: Chronic (9) Type 2 diabetes mellitus Status: Chronic (10) Hypothyroidism Status: Chronic (11) Schizoaffective disorder Status: Chronic (12) ADHD (attention deficit hyperactivity disorder) Status: Chronic (13) Seizure disorder Status: Chronic Reason for Consult Date of Consultation: 03/04/18 History of Present Illness: The patient is a 23 year old white female with a past medical history including atrial fibrillation superimposed upon hypertension, diabetes mellitus, hypothyroidism, Factor 5 Leiden disorder, status post DVT/PE, status post IVC filter, schizoaffective disorder, attention deficit disorder, and seizure disorder, who presents for evaluation of recurrent seizure disorder who is referred for evaluation based on cardiovascular history and concern as to whether or not the patient may have an underlying Brugada syndrome. At the time of consultation the patient appeared to be somewhat lethargic. She did state she had a history of atrial fibrillation. She had been evaluated in [facility]. She did not recall any details of her evaluation. She has had no complaints of ongoing palpitation. She has had no reports of near syncope or syncope. There has been no other concerning chest discomfort or difficulty breathing that she reported. Her initial evaluation demonstrated cardiac enzymes which were negative. An ECG was performed she demonstrated sinus rhythm with, based upon the reported QTc interval, prolongation of her QTc interval. It did not appear to be compatible with classic elective cardiographic findings of Brugada syndrome. Additional medical records were requested for review. It appears that the patient has been evaluated at [facility] in [place], [place] in the past. According to their medical records there have been comments of atrial fibrillation and QT prolongation. They had recommended holding any QT prolongation medications as best as possible. No other cardiovascular records were available for review. From [facility], from [place], a transthoracic echocardiogram was reported. This was performed on 11/19/2017. At that time the report stated her LV was normal size and function with an LVEF of 65%, the RV was normal size and function, there was no hemodynamically significant valvular abnormalities, a patent foramen ovale was not demonstrated by color-flow Doppler or agitated saline contrast study, and there was a report of no significant change compared to a prior study of 04/16/2015. No other medical records were available for review. Since the patient's consultation earlier this day she subsequently was reported as becoming more awake and alert. She then requested to be discharged home for outpatient follow-up with her primary care physicians. [] Past Medical History Allergies/Adverse Reactions: Allergies Unable to Assess Allergy (Verified 03/03/18 21:27) Home Medications: Ambulatory Orders Medication Instructions Recorded Apixaban [Eliquis] 5 mg PO BID 03/03/18 Atorvastatin Calcium 40 mg PO DAILY 03/03/18 Carvedilol 25 mg PO BID 03/03/18 Furosemide 40 mg PO TID 03/03/18 Insulin Aspart [Novolog Vial] 5 unit SQ TID 03/03/18 Insulin Glargine,Hum.rec.anlog 45 unit SQ BID 03/03/18 [Lantus] Levothyroxine [Synthroid] 150 mcg PO DAILY 03/03/18 Gabapentin [Neurontin] 900 mg PO TIDCM #90 cap 03/04/18 Topiramate [Topamax] 100 mg PO BID #90 tab 03/04/18 levETIRAcetam tablet [Keppra 500 mg PO BID #90 tab 03/04/18 tablet] Past Medical History (Chronic Problems): Chronic Problems (Last Reviewed 03/04/18 @ 10:56 by Ross Shah MD) Unspecified chronic CHF (Chronic) Hypothyroidism (Chronic) Type 2 diabetes mellitus (Chronic) Seizure disorder (Chronic) Schizoaffective disorder (Chronic) ADHD (attention deficit hyperactivity disorder) (Chronic) Hypertension (Chronic) S/P IVC filter (Chronic) History of pulmonary embolism (Chronic) History of DVT of lower extremity (Chronic) Factor V Leiden (Chronic) Atrial fibrillation (Chronic) Psychiatric History: Bipolar - *Family History Paternal History Items: Clotting Disorder, Diabetes, Seizures Smoking Status: Current every day smoker Tobacco Use: Cigarettes Alcohol: Occasional Drugs: Marijuana Review of Systems - Review of Systems General: Denies: Fever, Night Sweats, Fatigue Cardiovascular: Denies: Chest Discomfort, Shortness of Breath, Orthopnea, PND, Peripheral Edema, Palpitations, Lightheadedness, Dizziness, Near Syncope, Syncope Respiratory: Denies: Cough, Sputum Production, Hemoptysis Gastrointestinal: Denies: Hematemesis, Hematochezia, Melena Genitourinary: Denies: Dysuria, Hematuria Skin: Denies: Rash Subjectve: This is a 23-year-old overweight white female who was resting comfortably and appeared somewhat lethargic at the time of her original consultation earlier this day. Objective: Vital Signs Temp Pulse Resp BP Pulse Ox 96.8 F L 55 L 17 124/80 H 97 03/04/18 11:44 03/04/18 15:06 03/04/18 15:06 03/04/18 15:06 03/04/18 15:06 Oxygen Delivery Method Room Air Weight: 363 lb 12.203 oz Body Mass Index (BMI) 55.2 Intake and Output for Last 24 Hours 03/02/18 03/03/18 03/04/18 23:59 23:59 23:59 Intake Total 231 / 231 Balance 231 / 231 General: Lethargic HEENT: Atraumatic, Normocephalic, PERRL, EOMI, Sclera Non Icteric Oral: Moist Mucosa Neck: Supple, Good ROM, No JVD Lungs: Clear to auscultation Cardiovascular: Regular Rhythm, Normal S1, Normal S2 Vascular: No Carotid Bruits Abdomen: Bowel Sounds Present, Soft, Non Tender Extremities: No Cyanosis, No Clubbing, No edema Psych/Mental Status: Depressed 03/04/18 01:29: Troponin I < 0.015 03/04/18 06:16: Troponin I < 0.015 03/04/18 06:16: Sodium 146 H, Potassium 3.7, Chloride 114 H, Carbon Dioxide 24.0, Anion Gap 8, BUN 6 L, Creatinine 0.71, Est GFR (MDRD) Af Amer 130, Est GFR (MDRD) Non-Af 108, BUN/Creatinine Ratio 8.5 L, Glucose 98, Calcium 8.2 L Rhythm: Sinus rhythm EKG: As noted above ECHO: As noted above Assessment/Plan 1. Atrial fibrillation The patient apparently has a history of paroxysmal atrial fibrillation. This is by her report and documentation and records from [facility] in [place], [place]. At the present time she appears to be in sinus rhythm. She apparently has been treated medically in the past. This appears to include antiplatelet therapy with aspirin. It appears she has been on rate control therapy with beta-blockers. Based upon review of outside medical records from [facility] in [place], [place], it does not appear the patient has been treated with anticoagulant therapy. There is been no report of any antiarrhythmic therapy. The patient does appear to have a [id number] Score of 5 based upon a reported history of congestive heart failure, hypertension, diabetes mellitus, CVA, and being a female. However, again, it does not appear she has been on anticoagulant therapy potentially based upon her history of paroxysmal atrial dysrhythmia and her other multiple medical issues, such as her underlying psychologic (including per outside medical records suicidal ideations) and neurologic disorders, raising concerns of risk benefit ratio of anticoagulant therapy especially with respect to recurrent seizure disorders, as well as other disorders in her outside hospital medical records listing anemia. Thus at the present time it appears the patient will be remaining on antiplatelet therapy. 2. Prolonged QT interval The patient has a long-standing history of a prolonged QT interval. There has been no previous augmentation with respect to additional need for electrophysiology evaluation or care other than attempting to eliminate any potential QT prolonging agents. Also, with respect to her electrocardiogram, there does not appear to be at least classic elective cardiographic findings for underlying Brugada syndrome at this time. There is been no comment on that in her past medical records. 3. CHF: Chronic diastolic The patient reportedly has chronic diastolic CHF. She does not appear to be in overt failure at this time. She will need to continue medical management as deemed appropriate. She has recently undergone echocardiographic studies as well noted by her previous report from [facility]. 4. Hypertension He should should continue antihypertensive therapy as deemed appropriate. 5. Diabetes mellitus The patient will continue medical management per her primary care physicians. 6. Hypothyroidism The patient should continue thyroid supplement therapy as deemed appropriate. 7. 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 At the moment there is no report of any acute thromboembolic events. She will continue medical management as deemed appropriate. 8. Psychological/neurological disorders The patient appears to have multiple psychological and underlying neurological disorders. She will need continue evaluation care per internal medicine. Comment: Again, as noted above, status post the patient's cardiovascular consultation earlier this day she apparently had improvement in her mental status and was subsequently released home for continued outpatient follow-up with her primary care physicians, etc. It did not appear she required further cardiovascular diagnostic studies or therapeutic intervention at this time. She should continue to follow with her primary real estate sales supervisor as deemed appropriate. This note was generated with [employer] dictation software. It may contain incorrect words, spelling, and punctuation that were not noted in checking the note before signing.
--- NOTE | 2018-03-04 16:57 | CON.PCM_ITS ---
Problem List (1) Atrial fibrillation Status: Chronic Qualifiers: Atrial fibrillation type: paroxysmal Qualified Code(s): I48.0 - Paroxysmal atrial fibrillation (2) Prolonged QT interval Status: Acute (3) Diastolic CHF, chronic Status: Acute (4) Factor V Leiden Status: Chronic (5) History of DVT of lower extremity Status: Chronic (6) History of pulmonary embolism Status: Chronic (7) S/P IVC filter Status: Chronic (8) Hypertension Status: Chronic (9) Type 2 diabetes mellitus Status: Chronic (10) Hypothyroidism Status: Chronic (11) Schizoaffective disorder Status: Chronic (12) ADHD (attention deficit hyperactivity disorder) Status: Chronic (13) Seizure disorder Status: Chronic Reason for Consult Date of Consultation: 03/04/18 History of Present Illness: The patient is a 23 year old white female with a past medical history including atrial fibrillation superimposed upon hypertension, diabetes mellitus, hypothyroidism, Factor 5 Leiden disorder, status post DVT/PE, status post IVC filter, schizoaffective disorder, attention deficit disorder, and seizure disorder, who presents for evaluation of recurrent seizure disorder who is referred for evaluation based on cardiovascular history and concern as to whether or not the patient may have an underlying Brugada syndrome. At the time of consultation the patient appeared to be somewhat lethargic. She did state she had a history of atrial fibrillation. She had been evaluated in [facility]. She did not recall any details of her evaluation. She has had no complaints of ongoing palpitation. She has had no reports of near syncope or syncope. There has been no other concerning chest discomfort or difficulty breathing that she reported. Her initial evaluation demonstrated cardiac enzymes which were negative. An ECG was performed she demonstrated sinus rhythm with, based upon the reported QTc interval, prolongation of her QTc interval. It did not appear to be compatible with classic elective cardiographic findings of Brugada syndrome. Additional medical records were requested for review. It appears that the patient has been evaluated at [facility] in [place], [place] in the past. According to their medical records there have been comments of atrial fibrillation and QT prolongation. They had recommended holding any QT prolongation medications as best as possible. No other cardiovascular records were available for review. From [facility], from [facility], a transthoracic echocardiogram was reported. This was performed on 11/19/2017. At that time the report stated her LV was normal size and function with an LVEF of 65%, the RV was normal size and function, there was no hemodynamically significant valvular abnormalities, a patent foramen ovale was not demonstrated by color-flow Doppler or agitated saline contrast study, and there was a report of no significant change compared to a prior study of 04/16/2015. No other medical records were available for review. Since the patient's consultation earlier this day she subsequently was reported as becoming more awake and alert. She then requested to be discharged home for outpatient follow-up with her primary care physicians. [] Past Medical History Allergies/Adverse Reactions: Allergies Unable to Assess Allergy (Verified 03/03/18 21:27) Home Medications: Ambulatory Orders Medication Instructions Recorded Apixaban [Eliquis] 5 mg PO BID 03/03/18 Atorvastatin Calcium 40 mg PO DAILY 03/03/18 Carvedilol 25 mg PO BID 03/03/18 Furosemide 40 mg PO TID 03/03/18 Insulin Aspart [Novolog Vial] 5 unit SQ TID 03/03/18 Insulin Glargine,Hum.rec.anlog 45 unit SQ BID 03/03/18 [Lantus] Levothyroxine [Synthroid] 150 mcg PO DAILY 03/03/18 Gabapentin [Neurontin] 900 mg PO TIDCM #90 cap 03/04/18 Topiramate [Topamax] 100 mg PO BID #90 tab 03/04/18 levETIRAcetam tablet [Keppra 500 mg PO BID #90 tab 03/04/18 tablet] Past Medical History (Chronic Problems): Chronic Problems (Last Reviewed 03/04/18 @ 10:56 by Ross Shah MD) Unspecified chronic CHF (Chronic) Hypothyroidism (Chronic) Type 2 diabetes mellitus (Chronic) Seizure disorder (Chronic) Schizoaffective disorder (Chronic) ADHD (attention deficit hyperactivity disorder) (Chronic) Hypertension (Chronic) S/P IVC filter (Chronic) History of pulmonary embolism (Chronic) History of DVT of lower extremity (Chronic) Factor V Leiden (Chronic) Atrial fibrillation (Chronic) Psychiatric History: Bipolar - *Family History Paternal History Items: Clotting Disorder, Diabetes, Seizures Smoking Status: Current every day smoker Tobacco Use: Cigarettes Alcohol: Occasional Drugs: Marijuana Review of Systems - Review of Systems General: Denies: Fever, Night Sweats, Fatigue Cardiovascular: Denies: Chest Discomfort, Shortness of Breath, Orthopnea, PND, Peripheral Edema, Palpitations, Lightheadedness, Dizziness, Near Syncope, Syncope Respiratory: Denies: Cough, Sputum Production, Hemoptysis Gastrointestinal: Denies: Hematemesis, Hematochezia, Melena Genitourinary: Denies: Dysuria, Hematuria Skin: Denies: Rash Subjectve: This is a 23-year-old overweight white female who was resting comfortably and appeared somewhat lethargic at the time of her original consultation earlier this day. Objective: Vital Signs Temp Pulse Resp BP Pulse Ox 96.8 F L 55 L 17 124/80 H 97 03/04/18 11:44 03/04/18 15:06 03/04/18 15:06 03/04/18 15:06 03/04/18 15:06 Oxygen Delivery Method Room Air Weight: 363 lb 12.203 oz Body Mass Index (BMI) 55.2 Intake and Output for Last 24 Hours 03/02/18 03/03/18 03/04/18 23:59 23:59 23:59 Intake Total 231 / 231 Balance 231 / 231 General: Lethargic HEENT: Atraumatic, Normocephalic, PERRL, EOMI, Sclera Non Icteric Oral: Moist Mucosa Neck: Supple, Good ROM, No JVD Lungs: Clear to auscultation Cardiovascular: Regular Rhythm, Normal S1, Normal S2 Vascular: No Carotid Bruits Abdomen: Bowel Sounds Present, Soft, Non Tender Extremities: No Cyanosis, No Clubbing, No edema Psych/Mental Status: Depressed 03/04/18 01:29: Troponin I < 0.015 03/04/18 06:16: Troponin I < 0.015 03/04/18 06:16: Sodium 146 H, Potassium 3.7, Chloride 114 H, Carbon Dioxide 24.0 , Anion Gap 8, BUN 6 L, Creatinine 0.71, Est GFR (MDRD) Af Amer 130, Est GFR ( MDRD) Non-Af 108, BUN/Creatinine Ratio 8.5 L, Glucose 98, Calcium 8.2 L Rhythm: Sinus rhythm EKG: As noted above ECHO: As noted above Assessment/Plan 1. Atrial fibrillation The patient apparently has a history of paroxysmal atrial fibrillation. This is by her report and documentation and records from [facility] in [place], [place]. At the present time she appears to be in sinus rhythm. She apparently has been treated medically in the past. This appears to include antiplatelet therapy with aspirin. It appears she has been on rate control therapy with beta-blockers. Based upon review of outside medical records from [facility] in [place], [place], it does not appear the patient has been treated with anticoagulant therapy. There is been no report of any antiarrhythmic therapy. The patient does appear to have a [id number] Score of 5 based upon a reported history of congestive heart failure, hypertension, diabetes mellitus, CVA, and being a female. However, again, it does not appear she has been on anticoagulant therapy potentially based upon her history of paroxysmal atrial dysrhythmia and her other multiple medical issues, such as her underlying psychologic (including per outside medical records suicidal ideations) and neurologic disorders, raising concerns of risk benefit ratio of anticoagulant therapy especially with respect to recurrent seizure disorders, as well as other disorders in her outside hospital medical records listing anemia. Thus at the present time it appears the patient will be remaining on antiplatelet therapy. 2. Prolonged QT interval The patient has a long-standing history of a prolonged QT interval. There has been no previous augmentation with respect to additional need for electrophysiology evaluation or care other than attempting to eliminate any potential QT prolonging agents. Also, with respect to her electrocardiogram, there does not appear to be at least classic elective cardiographic findings for underlying Brugada syndrome at this time. There is been no comment on that in her past medical records. 3. CHF: Chronic diastolic The patient reportedly has chronic diastolic CHF. She does not appear to be in overt failure at this time. She will need to continue medical management as deemed appropriate. She has recently undergone echocardiographic studies as well noted by her previous report from [facility]. 4. Hypertension He should should continue antihypertensive therapy as deemed appropriate. 5. Diabetes mellitus The patient will continue medical management per her primary care physicians. 6. Hypothyroidism The patient should continue thyroid supplement therapy as deemed appropriate. 7. Prothrombotic disorder with factor V Leiden deficiency with history of DVT/ PE status post IVC filter The patient has the aforementioned diagnosis and has been cared for in the past as described above. At the moment there is no report of any acute thromboembolic events. She will continue medical management as deemed appropriate. 8. Psychological/neurological disorders The patient appears to have multiple psychological and underlying neurological disorders. She will need continue evaluation care per internal medicine. Comment: Again, as noted above, status post the patient's cardiovascular consultation earlier this day she apparently had improvement in her mental status and was subsequently released home for continued outpatient follow-up with her primary care physicians, etc. It did not appear she required further cardiovascular diagnostic studies or therapeutic intervention at this time. She should continue to follow with her primary non acoustic operator as deemed appropriate. This note was generated with [employer] dictation software. It may contain incorrect words, spelling, and punctuation that were not noted in checking the note before signing.
== END 2018-03-04 15:30 | disposition home or self-care (01) | DRG 24 ==
LOC: ED 22:11 → ICU 03-04 00:31
PROVIDERS: Admitting Provider Hospitalist; Emergency Provider Emergency Medicine; Family Provider Nurse Practitioner Family; PCP Nurse Practitioner Family; Visit Provider Hospitalist
DX: G40.409 Other generalized epilepsy and epileptic syndromes, not intractable, without status epilepticus (principal); I48.0 Paroxysmal atrial fibrillation; G93.41 Metabolic encephalopathy; F25.9 Schizoaffective disorder, unspecified; I11.0 Hypertensive heart disease with heart failure; I50.32 Chronic diastolic (congestive) heart failure; E87.6 Hypokalemia; E11.9 Type 2 diabetes mellitus without complications; D68.51 Activated protein C resistance; R07.9 Chest pain, unspecified; E03.9 Hypothyroidism, unspecified; I48.2 Chronic atrial fibrillation; G89.29 Other chronic pain; F90.9 Attention-deficit hyperactivity disorder, unspecified type; E66.3 Overweight; Z68.43 Body mass index [BMI] 50.0-59.9, adult; F17.210 Nicotine dependence, cigarettes, uncomplicated; Z76.5 Malingerer [conscious simulation]; Z79.01 Long term (current) use of anticoagulants; Z79.4 Long term (current) use of insulin; Z79.899 Other long term (current) drug therapy; Z86.711 Personal history of pulmonary embolism; Z86.718 Personal history of other venous thrombosis and embolism
CPT/HCPCS: 36591; 70450; 71045; 80048; 80076; 80307; 81001; 82550; 82962; 84484; 85025; 93005; 97162; 99218; 99283; 99406; J7030; P9612; A4216; G0378; J2405

== ENCOUNTER 2018-03-09 20:38 | Emergency (ER) | payer MEDICAID, SELFPAY ==
[2018-03-09 20:39] VITALS: BP 160/81; PULSE 103; RESP 18; TEMP 36.1; O2SAT 97; BMI 51.7
[2018-03-09 20:55] VITALS: BP 154/100; PULSE 93; RESP 16; O2SAT 98
--- NOTE | 2018-03-09 21:37 | ED.RN ---
PT WALKED OUT OF THE DEPARTMENT YELLING AT THE STAFF. PT CONTINUED TO YELL AND CUSS OUT ON THE ER RAMP WHILE WAITING FOR HER RIDE
--- NOTE | 2018-03-09 23:44 | ED.VISSUMM ---
- ER Visit Summary Date of Service: 03/09/18 Chief Complaint: Right lateral neck pain. I think I have a clot History of Present Illness: The patient is a 23 F known prior history of factor V Leiden clotting disorder, insulin-dependent diabetes, reported A. fib, and psychiatric history. Patient has a right chest wall MediPort due to being a very difficult IV access. This was placed at [facility] in [place]. Patient believes she may have a clot above the port. She states for days to maybe 1-2 weeks had discomfort in her right lateral neck to be swollen. She denies any chest pain, fever or shortness of breath. She states she has not had this evaluated other than an x-ray which she was told that the port was kinked. During the information gathering of the history the patient constantly is using foul language. Physical Examination: Morbidly obese 23-year-old female. Vital signs are stable afebrile. Pulse ox 97% on room air no hypoxia. No distress. H EENT exam unremarkable. Neck mild tenderness on the right lateral side of her neck. No significant swelling. Trachea midline. No lymphadenopathy. Left side is unremarkable. Lungs clear to auscultation bilaterally. Heart regular rhythm rate about 103 no murmur. She does have a right chest wall MediPort. There is no cellulitis and is not significantly tender. There is no redness or warmth. Abdomen is obese but soft and nontender. She is moving all 4 extremities. They are neurovascularly intact. Back exam unremarkable. Neurologically she is awake and alert. Test Results: I called the radiology department to see which would be the best test to evaluate for a possible right IJ DVT or other clot. They suggested a noninvasive study which is not available at this time in the evening. Along with the nurse I want him to explain this to the patient became more upset and stated this could be done in almost any hospital in [place]. I explained to her I apologize that we could not do here tonight. That she can follow-up as an outpatient. Patient began occurs profusely. And got up and left prior to being discharged or given discharge instructions. Emergency Department Course and Treatment: [] Treatment Plan: Left prior to discharge. Patient knows that she needs a follow-up as an outpatient to get scheduled for a radiographic study to evaluate for possible DVT in the right neck or upper chest. Disposition: Left without being discharged Impression: Right lateral neck pain of uncertain etiology History of factor V Leiden clotting disorder Insulin-dependent diabetes Underlying psychiatric history This note was generated with [employer] dictation software. It may contain incorrect words, spelling, and punctuation that were not noted in review of the chart prior to signing ED Disposition - Plan for ED Patient: Disposition: Home or Assisted Living Chief Complaint: Chest Other Referrals: Adria Hopper, KATHY-C [Primary Care Provider] -
--- NOTE | 2018-03-09 23:49 | ED.DCSUM_ITS ---
- ER Visit Summary Date of Service: 03/09/18 Chief Complaint: Right lateral neck pain. I think I have a clot History of Present Illness: The patient is a 23 F known prior history of factor V Leiden clotting disorder, insulin-dependent diabetes, reported A. fib, and psychiatric history. Patient has a right chest wall MediPort due to being a very difficult IV access. This was placed at [facility] in [place]. Patient believes she may have a clot above the port. She states for days to maybe 1-2 weeks had discomfort in her right lateral neck to be swollen. She denies any chest pain, fever or shortness of breath. She states she has not had this evaluated other than an x-ray which she was told that the port was kinked. During the information gathering of the history the patient constantly is using foul language. Physical Examination: Morbidly obese 23-year-old female. Vital signs are stable afebrile. Pulse ox 97% on room air no hypoxia. No distress. H EENT exam unremarkable. Neck mild tenderness on the right lateral side of her neck. No significant swelling. Trachea midline. No lymphadenopathy. Left side is unremarkable. Lungs clear to auscultation bilaterally. Heart regular rhythm rate about 103 no murmur. She does have a right chest wall MediPort. There is no cellulitis and is not significantly tender. There is no redness or warmth. Abdomen is obese but soft and nontender. She is moving all 4 extremities. They are neurovascularly intact. Back exam unremarkable. Neurologically she is awake and alert. Test Results: I called the radiology department to see which would be the best test to evaluate for a possible right IJ DVT or other clot. They suggested a noninvasive study which is not available at this time in the evening. Along with the nurse I want him to explain this to the patient became more upset and stated this could be done in almost any hospital in [place]. I explained to her I apologize that we could not do here tonight. That she can follow-up as an outpatient. Patient began occurs profusely. And got up and left prior to being discharged or given discharge instructions. Emergency Department Course and Treatment: [] Treatment Plan: Left prior to discharge. Patient knows that she needs a follow- up as an outpatient to get scheduled for a radiographic study to evaluate for possible DVT in the right neck or upper chest. Disposition: Left without being discharged Impression: Right lateral neck pain of uncertain etiology History of factor V Leiden clotting disorder Insulin-dependent diabetes Underlying psychiatric history This note was generated with [employer] dictation software. It may contain incorrect words, spelling, and punctuation that were not noted in review of the chart prior to signing ED Disposition - Plan for ED Patient: Disposition: Home or Assisted Living Chief Complaint: Chest Other Referrals: Adria Hopper, KATHY-C [Primary Care Provider] -
== END 2018-03-09 21:33 | disposition home or self-care (01) ==
LOC: ED 21:11
PROVIDERS: Emergency Provider Emergency Medicine; Family Provider Nurse Practitioner Family; PCP Nurse Practitioner Family
DX: M54.2 Cervicalgia (principal); D68.51 Activated protein C resistance; E11.9 Type 2 diabetes mellitus without complications; E66.01 Morbid (severe) obesity due to excess calories; Z72.0 Tobacco use; Z79.01 Long term (current) use of anticoagulants; Z79.4 Long term (current) use of insulin; Z79.899 Other long term (current) drug therapy
CPT/HCPCS: 99283

== ENCOUNTER 2018-03-13 22:55 | Emergency (ER) | payer MEDICAID, SELFPAY ==
[2018-03-13 22:56] VITALS: BP 153/103; PULSE 118; RESP 18; TEMP 37.2; O2SAT 97; BMI 56.1
--- NOTE | 2018-03-13 23:39 | ED.VISSUMM ---
- ER Visit Summary Date of Service: 03/13/18 Chief Complaint: Dysuria and frequency History of Present Illness: The patient is a 23 F who is in the process of establishing with Dr. France. 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 She reports she has dysuria and frequency that began 4-5 days ago. She has had chills without fever. She reports she has been nausea without vomiting. She complains of lower abdominal pain 6 out of 10 severity. She reports she is having diarrhea 7-8 times a day for the past 2 days. No blood in her stools. No black tarry stools. Patient also reports that she has an ulcer to her vaginal area that began this morning is increased in size over the course the day. She has sharp pain senna 10. This is increased with movement. She denies any vaginal bleeding or discharge. Last menstrual period was approximately 6 years ago. Physical Examination: Vitals: 98.9, 153/103, 118, 18, 97% room air which is not hypoxic. General: Well-nourished and well-developed. Head: Normocephalic atraumatic. Neck: Supple, no lymphadenopathy. No JVD. Nontender. Cardiovascular: Tachycardic regular rhythm. No murmurs. Respiratory: No respiratory distress. Clear to auscultation bilaterally. Abdominal: Soft, mild suprapubic tenderness to palpation, nondistended, normal bowel sounds. No guarding, rebound, or peritoneal signs. : 1 cm x 0.2 cm ulcer to the right of her clitoris. There are no vesicular lesions to suggest herpes. Back: Nontender. Extremities: Nontender, no edema. Skin: Normal color, no rash. Neurologic: Alert and oriented ?3. Cranial nerves II through XII are intact. Normal strength and sensation. Psych: Normal affect. Test Results: CBC is more for an H&H 10 point and 35.9, lymphocytes of 18. Chem-7 is marked potassium 3.4, chloride 109, glucose of 109, BUN of 5. UA is negative. She does have 25-50 white blood cells, but there are 25-50 epithelial cells as well and no bacteria. test is negative. Emergency Department Course and Treatment: Patient had an IV placed. She was given Toradol and Zofran IV. Following this she developed redness and itching. She was given Benadryl IV and is resting comfortably. Treatment Plan: Patient will be discharged instructions to follow-up with Dr. Galdino Mukherjee in 3-5 days for repeat evaluation if not improving. She is instructed to use barrier creams to the ulcer. Disposition: To home in improved and stable condition. Impression: 1. Dysuria. 2. Vulvar ulcer. This note was generated with [employer] dictation software. It may contain incorrect words, spelling, and punctuation that were not noted in review of the chart prior to signing ED Disposition - Plan for ED Patient: Chief Complaint: Complaint Instructions: ED Dysuria Uncertain Cause Referrals: Adria Hopper, KATHY-C [Primary Care Provider] - Yanely Angelo MD [STAFF PHYSICIAN] - 3-5 Days if not improving
[2018-03-14 00:08] LABS: Bacteria 0 SEEN /hpf (None Seen); Red Blood Cells-Urine 0 SEEN /hpf (0-5)
[2018-03-14] MEDS: Ketorolac 30 MG/ML Syringe IV (00:12)
[2018-03-14] MEDS: Ondansetron 4 MG/2 ML Vial IV (00:12)
[2018-03-14] MEDS: 0.9% Normal Saline 1,000 ML 1000 ML IV (00:12)
[2018-03-14 00:13] LABS: Color, Urine Yellow (Yellow); Glucose, Dipstick Normal (Normal); Ketone-Dipstick 5 mg/dl (Negative); Leukocyte Esterase-Dipstick 500 /ul (Negative); Nitrite-Dipstick Negative (Negative); Occult Blood-Urine 25 /ul (Negative); Protein-Dipstick 30 mg/dl (Negative); Urine Bilirubin Dipstick Negative (Negative); Urine Clarity Sl. Cloudy (Clear); Urine Urobilinogen 1 mg/dl (Normal); Urine pH 6.5 (5.0 - 8.0)
[2018-03-14 00:17] LABS: Absolute Neutrophil Count 5.7 X10^3/uL (2.0-7.7); Basophil# 0.05 X10^3/uL; Basophil% 0.6 % (0-1); Eosinophil# 0.25 X10^3/uL; Eosinophils% 3.1 % (0-5); Hematocrit 35.9 % (37-47); Hemoglobin 10.9 g/dl (12.0-15.0); Lymphocyte % 18.4 % (19-41); Mean Corp Hgb Conc 30.4 g/gl (32-36); Mean Corpuscular Volume 75.9 fL (81-99); Mean Platelet Vol. 8.9 fl (6.2-12.0); Monocyte# 0.68 X10^3/uL; Monocyte% 8.4 % (0-10); Neutrophil # 5.65 X10^3/uL (2.7-7.7); Neutrophil % 69.4 % (47-70); Platelet Count 271 K/mm3 (150-450); RBC Distribution Width CV 16.6 % (11.6-14.6); RBC Distribution Width SD 44.8 fl (35.1-43.9); Red Blood Count 4.73 M/mm3 (4.2-5.4); White Blood Count 8.1 K/mm3 (4.4-11.0)
[2018-03-14 00:18] LABS: POSITIVE COUNT NO; POSITIVE DIFFERENTIAL NO; POSITIVE MORPHOLOGY NO
[2018-03-14 00:20] LABS: Calcium Oxalate Crystals Ur 2+ /hpf (<or=2+); Hyaline Cast 0-5 SEEN /lpf (0-5); Mucous, Urine 2+ /hpf (<or=2+); Squamous Epithelial Cells - UA 25-50 SEEN /hpf (5-10); White Blood Cells 25-50 SEEN /hpf (0-5)
[2018-03-14 00:23] LABS: Anion Gap 6 (5-15); BUN 5 mg/dL (7-18); BUN/Creat Ratio 6.3 RATIO (10-20); Calcium,Total 8.9 mg/dL (8.5-10.1); Chloride 108 mmol/L (98-107); Creatinine, Serum 0.79 mg/dL (0.55-1.02); EST Glomerular Filtration Rate 95 mL/min (>60); Est Glom Filt Rate - Afr Amer 115 mL/min (>60); Estimated Creatinine Clearance 110.77 ml/min; Glucose 109 mg/dL (74-106); Potassium 3.4 mmol/L (3.5-5.1); Sodium Level 141 mmol/L (136-145)
[2018-03-14 00:55] LABS: Pregnancy, Serum, hCG Quali. NEGATIVE Negative (0-9 Nonpreg)
[2018-03-14] MEDS: DiphenhydrAMINE 50 MG/ML Syringe IV (00:57)
[2018-03-14 01:11] VITALS: BP 145/68; PULSE 91; RESP 18; O2SAT 97
== END 2018-03-14 01:15 | disposition home or self-care (01) ==
PROVIDERS: Emergency Provider Emergency Medicine; Family Provider Nurse Practitioner Family; PCP Nurse Practitioner Family
DX: R30.0 Dysuria (principal); N76.6 Ulceration of vulva; R19.7 Diarrhea, unspecified; R35.0 Frequency of micturition; E11.9 Type 2 diabetes mellitus without complications; I48.91 Unspecified atrial fibrillation; I11.0 Hypertensive heart disease with heart failure; I50.9 Heart failure, unspecified; E03.9 Hypothyroidism, unspecified; Z72.0 Tobacco use; Z79.01 Long term (current) use of anticoagulants; Z79.4 Long term (current) use of insulin; Z79.899 Other long term (current) drug therapy; Z87.19 Personal history of other diseases of the digestive system
CPT/HCPCS: 80048; 81001; 84703; 85025; 96361; 96374; 96375; 99282; J7030; A4216; J2405

== ENCOUNTER 2018-03-25 20:30 | Emergency (ER) | payer MEDICAID, SELFPAY ==
[2018-03-25 20:31] VITALS: BP 135/92; PULSE 116; RESP 20; TEMP 36.6; O2SAT 96; BMI 55.3
[2018-03-25 20:53] VITALS: BP 144/76; PULSE 109; RESP 20; O2SAT 98
[2018-03-25] MEDS: 0.9% Normal Saline 1,000 ML 1000 ML IV (21:27)
[2018-03-25] MEDS: Morphine 4 MG/ML Syringe IV (21:27)
[2018-03-25] MEDS: Ondansetron 4 MG/2 ML Vial IV (21:27)
[2018-03-25 21:46] LABS: Absolute Neutrophil Count 7.6 X10^3/uL (2.0-7.7); Basophil# 0.06 X10^3/uL; Basophil% 0.5 % (0-1); Eosinophil# 0.29 X10^3/uL; Eosinophils% 2.5 % (0-5); Hematocrit 36.4 % (37-47); Hemoglobin 10.9 g/dl (12.0-15.0); Lymphocyte % 23.6 % (19-41); Mean Corp Hgb Conc 29.9 g/gl (32-36); Mean Corpuscular Hgb 22.6 pg (27.0-32.0); Mean Corpuscular Volume 75.5 fL (81-99); Mean Platelet Vol. 8.9 fl (6.2-12.0); Monocyte# 0.75 X10^3/uL; Monocyte% 6.6 % (0-10); Neutrophil # 7.59 X10^3/uL (2.7-7.7); Neutrophil % 66.5 % (47-70); POSITIVE COUNT NO; POSITIVE DIFFERENTIAL NO; POSITIVE MORPHOLOGY NO; Platelet Count 353 K/mm3 (150-450); RBC Distribution Width SD 45.1 fl (35.1-43.9); Red Blood Count 4.82 M/mm3 (4.2-5.4); White Blood Count 11.4 K/mm3 (4.4-11.0)
[2018-03-25 22:06] LABS: Anion Gap 7 (5-15); BUN 8 mg/dL (7-18); BUN/Creat Ratio 10.1 RATIO (10-20); Calcium,Total 8.4 mg/dL (8.5-10.1); Chloride 105 mmol/L (98-107); Creatinine, Serum 0.79 mg/dL (0.55-1.02); EST Glomerular Filtration Rate 95 mL/min (>60); Est Glom Filt Rate - Afr Amer 114 mL/min (>60); Estimated Creatinine Clearance 110.77 ml/min; Glucose 112 mg/dL (74-106); Potassium 3.8 mmol/L (3.5-5.1); Sodium Level 140 mmol/L (136-145)
[2018-03-25 22:57] LABS: Mucous, Urine 0 SEEN /hpf (<or=2+); Red Blood Cells-Urine 0 SEEN /hpf (0-5); White Blood Cells 0 SEEN /hpf (0-5)
[2018-03-25 22:58] LABS: Color, Urine Yellow (Yellow); Glucose, Dipstick Normal (Normal); Ketone-Dipstick Negative (Negative); Leukocyte Esterase-Dipstick 25 /ul (Negative); Nitrite-Dipstick Negative (Negative); Occult Blood-Urine Negative /ul (Negative); Protein-Dipstick Negative (Negative); Urine Bilirubin Dipstick Negative (Negative); Urine Clarity Clear (Clear); Urine Urobilinogen Normal (Normal)
[2018-03-25 23:06] LABS: Amorphous Sediment 1+; Bacteria 1+ /hpf (None Seen); Squamous Epithelial Cells - UA 0-5 SEEN /hpf (5-10)
--- NOTE | 2018-03-25 23:13 | ED.VISSUMM ---
- ER Visit Summary Date of Service: 03/25/18 Chief Complaint: Chest pain History of Present Illness: The patient is a 23 F who reports that she has left-sided chest pain that began yesterday. She continues pain that she describes a pressure. Is worsened by breathing or walking. Is relieved by sitting up. She reports is 10 out of 10 at worst a 9-10 currently. Patient reports that she had a port removed from the right side of her chest 3 days ago and placed on the left side of her chest by Dr. Islas in [place]. She states that she is taking 2 mg of Dilaudid every 6 hours. Patient does have a history of factor V Leiden deficiency. She stopped her Eliquis 8 days ago for the procedure and then started again 3 days ago. She also has an IVC filter. She reports that her pain is similar to when she has had a PE in the past. On review of systems patient reports that she has a dull abdominal pain is 5 out of 10 severity. She has been nauseated and vomited 6-7 times a day. No blood or emesis. She also had 7 episodes of diarrhea today. No blood in her stools or black tarry stools. She reports she has had frequent urination with small volumes. No dysuria. Physical Examination: Vitals: Stable. Afebrile. General: Well-nourished and well-developed. Head: Normocephalic atraumatic. Neck: Supple, no lymphadenopathy. No JVD. Nontender. Cardiovascular: Regular rate and rhythm. No murmurs. Respiratory: No respiratory distress. Clear to auscultation bilaterally. Moderate tenderness palpation to the left costochondral margin that does reproduce her pain. The incisions forearm her ports on the upper chest bilaterally are clean, dry, and intact. There is no erythema. There are closed with Dermabond. Abdominal: Soft, nontender, nondistended, normal bowel sounds. No guarding, rebound, or peritoneal signs. Back: Nontender. Extremities: Nontender, no edema. Skin: Normal color, no rash. Neurologic: Alert and oriented ?3. Cranial nerves II through XII are intact. Normal strength and sensation. Psych: Normal affect. Test Results: EKG is sinus at 100 and is unchanged from last month. Troponin is negative. UA is negative. Chem-7 is more for glucose 112 and calcium 8.4. CBC is marked for white count 11.4, H&H of 10 point and 36.4. Emergency Department Course and Treatment: Patient was treated the dose of morphine and is resting comfortably. A prolonged discussion with patient that I do not think exposing the radiation of a CT scan is in her best interest. She is already on Eliquis and has an IVC filter. I do not think there would be any change in management if she did have another small PE. She has stable vital signs has not had a bump in her troponin and I feel that this is the most reasonable course of action for this patient. Treatment Plan: Patient has asked for referral to urology for evaluation of her urinary frequency. She is instructed to follow-up with Dr. Jain as needed. Instructed follow-up her primary care physician 1 to days not improving. She is instructed to continue take her Dilaudid as scheduled at home. Return to the emergency department for any worsening symptoms. Disposition: To home in improved and stable condition. Impression: 1. Atypical chest pain. 2. Urethritis. This note was generated with [employer] dictation software. It may contain incorrect words, spelling, and punctuation that were not noted in review of the chart prior to signing ED Disposition - Plan for ED Patient: Disposition: Home or Assisted Living Chief Complaint: General Illness Instructions: ED Chest Pain Atypical Unkn Cause, ED Urethritis Infec Vs Inflam Fem Referrals: Adria Hopper, KATHY-C [Primary Care Provider] - 1-2 Days if not improving Juana Jain MD [STAFF PHYSICIAN] - As soon as possible
[2018-03-25 23:30] VITALS: BP 126/79; PULSE 94; RESP 15; O2SAT 99
== END 2018-03-25 23:30 | disposition home or self-care (01) ==
PROVIDERS: Emergency Provider Emergency Medicine; Family Provider Nurse Practitioner Family; PCP Nurse Practitioner Family
DX: R07.89 Other chest pain (principal); N34.2 Other urethritis; R11.2 Nausea with vomiting, unspecified; R19.7 Diarrhea, unspecified; R35.0 Frequency of micturition; R51 Headache; D68.51 Activated protein C resistance; I11.0 Hypertensive heart disease with heart failure; I50.9 Heart failure, unspecified; I48.91 Unspecified atrial fibrillation; E11.9 Type 2 diabetes mellitus without complications; E03.9 Hypothyroidism, unspecified; G47.33 Obstructive sleep apnea (adult) (pediatric); Z72.0 Tobacco use; Z86.711 Personal history of pulmonary embolism; Z86.73 Personal history of transient ischemic attack (TIA), and cerebral infarction without residual deficits; Z79.01 Long term (current) use of anticoagulants; Z79.4 Long term (current) use of insulin; Z79.899 Other long term (current) drug therapy
CPT/HCPCS: 71045; 80048; 81001; 84484; 85025; 93005; 96361; 96374; 96375; 99285; J7030; P9612; A4216; J2405

== ENCOUNTER 2018-04-01 12:31 | Emergency (ER) | payer MEDICAID, SELFPAY ==
[2018-04-01 12:32] VITALS: BP 163/107; PULSE 102; RESP 20; TEMP 36.8; O2SAT 100; BMI 53.9
[2018-04-01 12:54] VITALS: BP 135/97; PULSE 87; RESP 14; O2SAT 98
--- NOTE | 2018-04-01 13:07 | ED.VISSUMM ---
- ER Visit Summary Date of Service: 04/01/18 Chief Complaint: Concerned port site is infected History of Present Illness: The patient is a 23 F who had a port placed. She states she was seen by the surgeons PA and told to come to the emergency room because the port is infected. I asked her why with she drive from [place] to [place] if her doctor practices out of [facility]. She had no response. She denied fever, chills night sweats. She also wondered know why the wound was gaping slightly compared to the other incision site on the right. I informed her had no explanation for that. She reports drainage after I was done asking her questions and I did not give her anything for pain. Physical Examination: Patient's vital signs are noted. BMI is 54.0. Incision site is healing with minimal marginal and wound erythema. There is no warmth, fluctuance, lymphangitis and there is no supraclavicular, infraclavicular or axillary lymphadenopathy. Heart is regular without murmur, gallop or rub. S1 and S2 are normal. Lungs are clear to auscultation with good movement of air bilaterally. Test Results: None Emergency Department Course and Treatment: Patient was informed there is no evidence infection. She requested pain medicine. She had pain out of proportion to tactile stimuli. I informed her that she could either take ibuprofen or acetaminophen. She states she is allergic to both. I informed her I have nothing more to offer with regards to pain medicine. I recommended she contact the PA who said she had an infection and speak with him. Treatment Plan: Discharge in stable condition Disposition: Discharged home with appropriate home-going instructions Impression: Wound check status post port placement without evidence infection and pain This note was generated with [employer] dictation software. It may contain incorrect words, spelling, and punctuation that were not noted in review of the chart prior to signing ED Disposition - Plan for ED Patient: Disposition: Home or Assisted Living Chief Complaint: Wound Check Instructions: ED Wound Check Post Op No Infec, ED Post Op Pain Referrals: Adria Hopper NP-C [Primary Care Provider] - As Needed
--- NOTE | 2018-04-01 15:06 | ED.RN ---
[address] Moss saw her but before registration and discharge.
== END 2018-04-01 13:30 | disposition home or self-care (01) ==
PROVIDERS: Emergency Provider Emergency Medicine; Family Provider Nurse Practitioner Family; PCP Nurse Practitioner Family
DX: Z45.2 Encounter for adjustment and management of vascular access device (principal); E66.9 Obesity, unspecified; Z68.43 Body mass index [BMI] 50.0-59.9, adult; Z79.01 Long term (current) use of anticoagulants; Z79.4 Long term (current) use of insulin; Z79.899 Other long term (current) drug therapy
CPT/HCPCS: 99282